=== PATIENT | male | born 1955 | race Caucasian/White ===

== ENCOUNTER 2017-09-22 15:59 | Inpatient (IN) | payer MEDICARE ==
[~2017-09-22] VITALS: Ht 175.3 cm; Wt 84.9 kg
[2017-09-22] MEDS ORDERED: IMDUR120 MG PO (16:18)
[2017-09-22] MEDS ORDERED: NORVASC10 MG PO (16:18)
[2017-09-22] MEDS ORDERED: COZAAR100 MG PO (16:18)
[2017-09-22] MEDS ORDERED: FLOMAX0.4 MG PO (16:19)
[2017-09-22] MEDS ORDERED: LOPRESSOR100 M1 PO ×2 (16:19)
[2017-09-22] MEDS ORDERED: LO-DOSE ASPIRIN81 M2 PO (16:19)
[2017-09-22] MEDS ORDERED: OMEGA-31000 M1 PO (16:20)
[2017-09-22] MEDS ORDERED: CLARITIN,ALAVAR10 MG PO (16:20)
[2017-09-22] MEDS ORDERED: CO Q1060 MG PO (16:20)
[2017-09-22] MEDS ORDERED: CENTRUM SILVER1 EAC3 PO (16:21)
[2017-09-22] MEDS ORDERED: GLUCOSAMINE &1 EAC1 PO (16:21)
[2017-09-22] MEDS ORDERED: TURMERIC 450-51 EACH PO (16:21)
[2017-09-22 16:27] LABS: BASOPHIL (%) 0.3 % (0-1); EOSINOPHIL (%) 0.4 % (0-5); EOSINOPHIL COUNT 0.1 K/uL (0-0.3); HEMATOCRIT 52.6 % (38.0-50.0); HEMOGLOBIN 18.5 G/DL (12.5-16.6); IMMATURE GRANULOCYTE (%) 0.4 % (0.0-0.7); LYMPHOCYTE (%) 11.7 % (15-42); LYMPHOCYTE COUNT 1.6 K/uL (1.0-2.8); MCH 30.1 PG (29.0-34.0); MCHC 35.2 G/DL (30.0-36.0); MCV 85.5 FL (86-99); MONOCYTE (%) 11.2 % (3-12); MONOCYTE COUNT 1.5 K/uL (0-0.8); NEUTROPHIL COUNT 10.3 K/uL (1.8-6.4); PLATELET COUNT 192 K/uL (156-360); RBC DIS.WIDTH-CV 12.2 % (11.8-14.6); RBC DIS.WIDTH-SD 37.7 % (39-53); RED BLOOD COUNT 6.15 M/uL (4.00-5.50); WHITE BLOOD COUNT 13.6 K/uL (4.1-10.2)
[2017-09-22 16:30] LABS: INTER. NORMALIZED RATIO 1.1
[2017-09-22 16:32] LABS: AMYLASE 47 IU/L (1-118); CHLORIDE 98 mEq/L (99-109); PTT 28.6 SEC (25-37); SODIUM 134 mEq/L (136-147)
[2017-09-22 16:34] LABS: GLUCOSE 325 mg/dL (70-99)
[2017-09-22 16:37] LABS: SERUM ETHYL ALCOHOL < 10 mg/dL
[2017-09-22 16:38] LABS: CREATININE 1.1 mg/dL (0.6-1.3); GFR ESTIMATE (CALCULATED) > 59 mL/min/ (58.99-99999)
[2017-09-22 16:39] LABS: UREA NITROGEN (BUN) 12 mg/dL (9-23)
[2017-09-22 16:41] LABS: LIPASE 28 U/L (1.0-51.0)
[2017-09-22 16:46] LABS: TROP-I INTERPRETATION POSITIVE
[2017-09-22 16:54] LABS: TROPONIN-I 5.13 ng/mL (0.0-0.30)
[2017-09-22 17:40] LABS: APPEARANCE CLEAR ((CLEAR)); BILIRUBIN NEGATIVE; BLOOD NEGATIVE; COLOR STRAW ((YELLOW)); GLUCOSE (STRIP) >=500; KETONES 5; LEUKOCYTES NEGATIVE; NITRITE NEGATIVE; PROTEIN (STRIP) NEGATIVE; SPECIFIC GRAVITY 1.013 (1.000-1.030); UCUL ADDED? NO; UROBILINOGEN 0.2 MG/DL (0.2-1.0)
[2017-09-22 17:58] LABS: AMPHETAMINE NEGATIVE (500 ng/mL); BARBITURATES NEGATIVE (200 ng/mL); BENZODIAZEPINES NEGATIVE (150 ng/mL); BUPRENORPHINE NEGATIVE (10 ng/mL); COCAINE NEGATIVE (150 ng/mL); METHADONE NEGATIVE (200 ng/mL); METHAMPHETAMINE NEGATIVE (500 ng/mL); OPIATES (MORPHINE) NEGATIVE (100 ng/mL); OXYCODONE NEGATIVE (100 ng/mL); PHENCYCLIDINE NEGATIVE (25 ng/mL); PROPOXYPHENE NEGATIVE (300 ng/mL); THC CANNABINOIDS NEGATIVE (50 ng/mL); TRICYCLIC ANTIDEPRESSANTS NEGATIVE (300 ng/mL)
[2017-09-22 19:39] LABS: INTER. NORMALIZED RATIO 1.1
[2017-09-22 19:41] LABS: ALBUMIN 4.1 g/dL (3.2-4.8)
[2017-09-22 19:42] LABS: CHLORIDE 102 mEq/L (99-109); POTASSIUM 4.1 mEq/L (3.7-5.4); SODIUM 136 mEq/L (136-147)
[2017-09-22 19:44] LABS: GLUCOSE 240 mg/dL (70-99); TOTAL PROTEIN 6.9 g/dL (6.4-8.3)
[2017-09-22 19:46] LABS: TOTAL BILIRUBIN 1.1 mg/dL (0.0-1.0)
[2017-09-22 19:47] LABS: ALKALINE PHOSPHATASE 67 IU/L (3-129)
[2017-09-22 19:48] LABS: CREATININE 0.9 mg/dL (0.6-1.3); GFR ESTIMATE (CALCULATED) > 59 mL/min/ (58.99-99999)
[2017-09-22 19:49] LABS: AST (GOT) 48 IU/L (2-34); UREA NITROGEN (BUN) 11 mg/dL (9-23)
[2017-09-22 19:51] LABS: ALT (GPT) 28 IU/L (3-49)
[2017-09-22 20:19] LABS: PTT 109.8 SEC (25-37)
[2017-09-22 20:25] LABS: HDL CHOLESTEROL 35 MG/DL (Desirable>=40); LDL CHOLESTEROL 119 mg/dL (Desirable<100); NON-HDL CHOLESTEROL 139 mg/dL (Desirable<160); TOTAL CHOLESTEROL 174 mg/dL (Desirable<200); TRIGLYCERIDES 100 MG/DL (Normal: <150)
[2017-09-22 23:00] VITALS: BP 149/76
[2017-09-22 23:06] LABS: TROP-I INTERPRETATION POSITIVE
[2017-09-22 23:08] LABS: TROPONIN-I 6.03 ng/mL (0.0-0.30)
[2017-09-23 05:21] VITALS: BP 150/80
[2017-09-23 05:44] LABS: INTER. NORMALIZED RATIO 1.1
[2017-09-23 05:46] LABS: PTT 39.7 SEC (25-37)
[2017-09-23 05:49] LABS: HEMOGLOBIN 16.6 G/DL (12.5-16.6); MCH 29.9 PG (29.0-34.0); MCHC 34.6 G/DL (30.0-36.0); MCV 86.3 FL (86-99); PLATELET COUNT 166 K/uL (156-360); RBC DIS.WIDTH-CV 12.1 % (11.8-14.6); RBC DIS.WIDTH-SD 38.2 % (39-53); RED BLOOD COUNT 5.56 M/uL (4.00-5.50); WHITE BLOOD COUNT 11.2 K/uL (4.1-10.2)
[2017-09-23 06:02] LABS: TROP-I INTERPRETATION POSITIVE
[2017-09-23 06:13] LABS: TROPONIN-I 7.23 ng/mL (0.0-0.30)
[2017-09-23 07:58] VITALS: BP 140/75
[2017-09-23 10:50] LABS: HEMOGLOBIN A1c (GLYCOHEMOGLOB) 10.8 % (Below 5.7)
[2017-09-23 12:45] VITALS: BP 131/77
[2017-09-23 16:45] VITALS: BP 112/60; BP 112/62
[2017-09-23 20:40] VITALS: BP 157/89
[2017-09-24] VITALS (7 sets, daily range): BP systolic 119–149; BP diastolic 68–79
[2017-09-24 06:31] LABS: CHLORIDE 101 MEQ/L (99-109); GFR ESTIMATE (CALCULATED) > 59 mL/min/ (58.99-99999); GLUCOSE 248 mg/dL (70-99); POTASSIUM 4.1 MEQ/L (3.7-5.4); SODIUM 133 MEQ/L (136-147); UREA NITROGEN (BUN) 13 mg/dL (9-23)
[2017-09-24 06:37] LABS: HEMATOCRIT 49.5 % (38.0-50.0); HEMOGLOBIN 16.9 G/DL (12.5-16.6); MCH 29.8 PG (29.0-34.0); MCHC 34.1 G/DL (30.0-36.0); MCV 87.1 FL (86-99); PLATELET COUNT 162 K/uL (156-360); RBC DIS.WIDTH-CV 12.1 % (11.8-14.6); RBC DIS.WIDTH-SD 38.8 % (39-53); RED BLOOD COUNT 5.68 M/uL (4.00-5.50); WHITE BLOOD COUNT 9.2 K/uL (4.1-10.2)
[2017-09-25] VITALS: BP 145/85
[2017-09-25 04:02] VITALS: BP 128/70
[2017-09-25 07:17] VITALS: BP 117/60
[2017-09-25 08:06] LABS: BASOPHIL (%) 0.6 % (0-1); BASOPHIL COUNT 0.1 K/uL (0-0.1); EOSINOPHIL COUNT 0.3 K/uL (0-0.3); HEMATOCRIT 47.6 % (38.0-50.0); HEMOGLOBIN 16.3 G/DL (12.5-16.6); IMMATURE GRANULOCYTE (%) 0.2 % (0.0-0.7); LYMPHOCYTE (%) 19.3 % (15-42); LYMPHOCYTE COUNT 1.7 K/uL (1.0-2.8); MCH 29.1 PG (29.0-34.0); MCHC 34.2 G/DL (30.0-36.0); MONOCYTE (%) 11.9 % (3-12); NEUTROPHIL COUNT 5.6 K/uL (1.8-6.4); PLATELET COUNT 180 K/uL (156-360); RBC DIS.WIDTH-CV 11.9 % (11.8-14.6); RBC DIS.WIDTH-SD 36.7 % (39-53); WHITE BLOOD COUNT 8.6 K/uL (4.1-10.2)
[2017-09-25 08:27] LABS: CHLORIDE 101 MEQ/L (99-109); CREATININE 0.8 MG/DL (0.6-1.3); GFR ESTIMATE (CALCULATED) > 59 mL/min/ (58.99-99999); GLUCOSE 194 mg/dL (70-99); SODIUM 136 MEQ/L (136-147); UREA NITROGEN (BUN) 13 mg/dL (9-23)
[2017-09-25] MEDS ORDERED: ATROPINE SU0.1 MG/ML IV (09:59)
[2017-09-25] MEDS ORDERED: LEVEMIR100 UNIT/2 SC (09:59)
[2017-09-25] MEDS ORDERED: NITROSTAT0.4 MG SL (09:59)
[2017-09-25] MEDS ORDERED: ATORVASTATIN CA80 MG PO (09:59)
[2017-09-25] MEDS ORDERED: HEPARIN SO25000 UNIT IV (10:03)
[2017-09-25 10:36] VITALS: BP 124/70
[2017-09-25 14:51] VITALS: BP 142/72
[2017-09-25 20:00] VITALS: BP 149/81
[2017-09-26 00:08] VITALS: BP 124/65
[2017-09-26 03:21] VITALS: BP 141/64
[2017-09-26 06:06] LABS: HEMATOCRIT 48.5 % (38.0-50.0); HEMOGLOBIN 16.3 G/DL (12.5-16.6); MCH 29.3 PG (29.0-34.0); MCHC 33.6 G/DL (30.0-36.0); MCV 87.1 FL (86-99); PLATELET COUNT 180 K/uL (156-360); RBC DIS.WIDTH-SD 38.2 % (39-53); RED BLOOD COUNT 5.57 M/uL (4.00-5.50); WHITE BLOOD COUNT 9.6 K/uL (4.1-10.2)
[2017-09-26 07:15] VITALS: BP 132/77
[2017-09-26 12:42] VITALS: BP 101/59
== END 2017-09-26 15:35 | disposition short-term general hospital (02) | DRG 282 ==
LOC: EME 15:59 → 4EAST 18:43 → EDOF 18:43 → ENRESERV 18:47 → EDOF 20:03 → ENRESERV 20:43 → 4EAST 22:45 → ENPENDDIS 09-26 15:00 → 4EAST 09-26 15:35
PROVIDERS: Emergency Medicine; Internal Medicine; Internal Medicine Cardiovascular Disease
DX: T82.855A Stenosis of coronary artery stent, initial encounter (principal); I21.4 Non-ST elevation (NSTEMI) myocardial infarction; K21.9 Gastro-esophageal reflux disease without esophagitis; Z87.891 Personal history of nicotine dependence; I25.10 Atherosclerotic heart disease of native coronary artery without angina pectoris; G47.30 Sleep apnea, unspecified; E78.2 Mixed hyperlipidemia; E11.9 Type 2 diabetes mellitus without complications; I10 Essential (primary) hypertension; Z95.1 Presence of aortocoronary bypass graft; I08.1 Rheumatic disorders of both mitral and tricuspid valves; N40.0 Benign prostatic hyperplasia without lower urinary tract symptoms; Y83.1 Surgical operation with implant of artificial internal device as the cause of abnormal reaction of the patient, or of later complication, without mention of misadventure at the time of the procedure
CPT/HCPCS: 71045; 80048; 80053; 80061; 81003; 82150; 82948; 83036; 83690; 84484; 85025; 85027; 85610; 85730; 86850; 86900; 86901; 93005; 93306; 99281; 99285; C1769; C1887; G0480; J1200; J1644; J1815; J2250; J2405; J7030

== ENCOUNTER 2017-10-25 14:07 | Emergency (ER) | payer MEDICARE ==
[~2017-10-25] VITALS: Ht 172.7 cm; Wt 79.0 kg
[~2017-10-25 14:07] MED LIST: ATORVASTATIN CA80 MG PO; ATROPINE SU0.1 MG/ML IV; CENTRUM SILVER1 EAC3 PO; CLARITIN,ALAVAR10 MG PO; CO Q1060 MG PO; COZAAR100 MG PO; FLOMAX0.4 MG PO; GLUCOSAMINE &1 EAC1 PO; HEPARIN SO25000 UNIT IV; IMDUR120 MG PO; LEVEMIR100 UNIT/2 SC; LO-DOSE ASPIRIN81 M2 PO; LOPRESSOR100 M1 PO; NITROSTAT0.4 MG SL; NORVASC10 MG PO; OMEGA-31000 M1 PO; TURMERIC 450-51 EACH PO
[2017-10-25 15:04] LABS: BASOPHIL (%) 0.8 % (0-1); BASOPHIL COUNT 0.1 K/uL (0-0.1); EOSINOPHIL (%) 7.7 % (0-5); EOSINOPHIL COUNT 0.8 K/uL (0-0.3); HEMATOCRIT 42.9 % (38.0-50.0); HEMOGLOBIN 14.1 G/DL (12.5-16.6); IMMATURE GRANULOCYTE (%) 0.4 % (0.0-0.7); LYMPHOCYTE (%) 14.3 % (15-42); LYMPHOCYTE COUNT 1.5 K/uL (1.0-2.8); MCH 28.4 PG (29.0-34.0); MCHC 32.9 G/DL (30.0-36.0); MCV 86.5 FL (86-99); MONOCYTE (%) 9.1 % (3-12); NEUTROPHIL (%) 67.7 % (45-76); NEUTROPHIL COUNT 7.3 K/uL (1.8-6.4); PLATELET COUNT 343 K/uL (156-360); RBC DIS.WIDTH-CV 12.3 % (11.8-14.6); RBC DIS.WIDTH-SD 38.7 % (39-53); RED BLOOD COUNT 4.96 M/uL (4.00-5.50); WHITE BLOOD COUNT 10.8 K/uL (4.1-10.2)
[2017-10-25 15:08] LABS: INTER. NORMALIZED RATIO 1.2
[2017-10-25 15:11] LABS: CHLORIDE 102 mEq/L (99-109); SODIUM 140 mEq/L (136-147)
[2017-10-25 15:13] LABS: GLUCOSE 101 mg/dL (70-99); PTT 28.2 SEC (25-37)
[2017-10-25 15:16] LABS: CREATININE 0.8 mg/dL (0.6-1.3); GFR ESTIMATE (CALCULATED) > 59 mL/min/ (58.99-99999)
[2017-10-25 15:17] LABS: UREA NITROGEN (BUN) 16 mg/dL (9-23)
[2017-10-25] MEDS ORDERED: COUMADIN5 MG PO (16:18)
[2017-10-25] MEDS ORDERED: LOVENOX80 MG/0.8 SC (16:18)
[2017-10-25 16:58] VITALS: BP 176/95
== END 2017-10-25 16:59 | disposition home or self-care (01) ==
LOC: EME 14:07
PROVIDERS: Emergency Medicine
DX: I82.401 Acute embolism and thrombosis of unspecified deep veins of right lower extremity (principal); Z95.1 Presence of aortocoronary bypass graft; I10 Essential (primary) hypertension; E11.9 Type 2 diabetes mellitus without complications; K21.9 Gastro-esophageal reflux disease without esophagitis; Z87.891 Personal history of nicotine dependence; Z79.82 Long term (current) use of aspirin; Z88.0 Allergy status to penicillin
CPT/HCPCS: 80048; 85025; 85610; 85730; 99281; 99284; J1650

== ENCOUNTER 2017-12-18 10:55 | Inpatient (IN) | payer MEDICARE ==
[~2017-12-18] VITALS: Ht 172.7 cm; Wt 76.2 kg
[~2017-12-18 10:55] MED LIST changes: +COUMADIN5 MG PO; +LOVENOX80 MG/0.8 SC; -NORVASC10 MG PO; +NORVASC5 MG PO
[2017-12-18 11:34] LABS: HEMATOCRIT 49.7 % (38.0-50.0); HEMOGLOBIN 16.1 G/DL (12.5-16.6); MCH 27.7 PG (29.0-34.0); MCHC 32.4 G/DL (30.0-36.0); MCV 85.4 FL (86-99); PLATELET COUNT 253 K/uL (156-360); RBC DIS.WIDTH-CV 13.3 % (11.8-14.6); RBC DIS.WIDTH-SD 41.5 % (39-53); RED BLOOD COUNT 5.82 M/uL (4.00-5.50); WHITE BLOOD COUNT 10.5 K/uL (4.1-10.2)
[2017-12-18 11:44] LABS: CHLORIDE 103 mEq/L (99-109); POTASSIUM 4.1 mEq/L (3.7-5.4); SODIUM 142 mEq/L (136-147)
[2017-12-18 11:46] LABS: GLUCOSE 115 mg/dL (70-99)
[2017-12-18 11:50] LABS: CREATININE 0.9 mg/dL (0.6-1.3); GFR ESTIMATE (CALCULATED) > 59 mL/min/ (58.99-99999)
[2017-12-18 11:51] LABS: UREA NITROGEN (BUN) 15 mg/dL (9-23)
[2017-12-18 11:54] LABS: TROP-I INTERPRETATION NEGATIVE; TROPONIN-I 0.01 ng/mL (0.0-0.30)
[2017-12-18 13:02] LABS: INTER. NORMALIZED RATIO 1.7
[2017-12-18 13:05] LABS: PTT 33.3 SEC (25-37)
[2017-12-18] MEDS ORDERED: LIPITOR20 MG PO (15:39)
[2017-12-18] MEDS ORDERED: COUMADIN6 MG PO (15:39)
[2017-12-18] MEDS ORDERED: LANTUS 3 M100 UNITS1 SC (15:40)
[2017-12-18] MEDS ORDERED: METFORMIN HCL500 M1 PO (15:41)
[2017-12-18 17:47] VITALS: BP 178/86
[2017-12-18 18:41] LABS: TROP-I INTERPRETATION NEGATIVE; TROPONIN-I < 0.01 ng/mL (0.0-0.30)
[2017-12-18 19:45] VITALS: BP 158/79
[2017-12-18 23:26] LABS: TROP-I INTERPRETATION NEGATIVE; TROPONIN-I < 0.01 ng/mL (0.0-0.30)
[2017-12-19] VITALS (7 sets, daily range): BP systolic 116–163; BP diastolic 56–86
[2017-12-19 07:46] LABS: HEMATOCRIT 49.8 % (38.0-50.0); HEMOGLOBIN 15.6 G/DL (12.5-16.6); MCH 26.6 PG (29.0-34.0); MCHC 31.3 G/DL (30.0-36.0); PLATELET COUNT 232 K/uL (156-360); RBC DIS.WIDTH-CV 13.2 % (11.8-14.6); RBC DIS.WIDTH-SD 41.2 % (39-53); RED BLOOD COUNT 5.86 M/uL (4.00-5.50); WHITE BLOOD COUNT 8.2 K/uL (4.1-10.2)
[2017-12-19 07:51] LABS: INTER. NORMALIZED RATIO 1.4
[2017-12-19 07:54] LABS: PTT 59.9 SEC (25-37)
[2017-12-19 08:07] LABS: CHLORIDE 105 MEQ/L (99-109); CREATININE 0.7 MG/DL (0.6-1.3); GFR ESTIMATE (CALCULATED) > 59 mL/min/ (58.99-99999); GLUCOSE 113 mg/dL (70-99); POTASSIUM 4.5 MEQ/L (3.7-5.4); SODIUM 143 MEQ/L (136-147); UREA NITROGEN (BUN) 13 mg/dL (9-23)
[2017-12-20 04:27] VITALS: BP 133/74
[2017-12-20 07:00] VITALS: BP 134/75
[2017-12-20 07:10] LABS: INTER. NORMALIZED RATIO 1.4
[2017-12-20] MEDS ORDERED: LOVENOX80 MG/0.8 SC (10:52)
[2017-12-20 11:20] VITALS: BP 149/75
[2017-12-20] MEDS ORDERED: COUMADIN4 MG PO (12:04)
== END 2017-12-20 14:08 | disposition home or self-care (01) | DRG 816 ==
LOC: EME 10:55 → EDOF 15:54 → ENRESERV 16:01 → CANRESERV 16:07 → ENRESERV 16:07 → EDOF 16:56 → 4SOUTH 16:56 → ENRESERV 16:57 → 4SOUTH 17:35
PROVIDERS: Hospitalist; Physician Assistant; Physician Assistant Medical; Student in an Organized Health Care Education/Training Program
DX: D73.5 Infarction of spleen (principal); E78.2 Mixed hyperlipidemia; I10 Essential (primary) hypertension; I25.10 Atherosclerotic heart disease of native coronary artery without angina pectoris; K21.9 Gastro-esophageal reflux disease without esophagitis; N40.0 Benign prostatic hyperplasia without lower urinary tract symptoms; N32.0 Bladder-neck obstruction; N41.1 Chronic prostatitis; E11.69 Type 2 diabetes mellitus with other specified complication; I44.0 Atrioventricular block, first degree; K57.30 Diverticulosis of large intestine without perforation or abscess without bleeding; K76.0 Fatty (change of) liver, not elsewhere classified; Z87.891 Personal history of nicotine dependence; Z95.1 Presence of aortocoronary bypass graft; Z95.5 Presence of coronary angioplasty implant and graft; I25.2 Old myocardial infarction; Z88.0 Allergy status to penicillin; Z79.84 Long term (current) use of oral hypoglycemic drugs; Z86.718 Personal history of other venous thrombosis and embolism; Z79.01 Long term (current) use of anticoagulants; Z79.82 Long term (current) use of aspirin; Z80.1 Family history of malignant neoplasm of trachea, bronchus and lung
CPT/HCPCS: 71046; 71275; 74177; 80048; 82948; 84484; 85027; 85610; 85730; 93005; 99281; 99285; J1650